=== PATIENT | female | born 1990 | race American Indian/Alaskan Native ===

== ENCOUNTER 2017-10-12 17:00 | Inpatient (IN) | payer OTHER ==
[~2017-10-12] VITALS: Ht 157.5 cm; Wt 86.6 kg
[2017-10-13] MEDS ORDERED: PRENATAL TABLE1 EAC3 PO (13:37)
== END 2017-10-16 15:56 | disposition home or self-care (01) | DRG 774 ==
LOC: OBS/DEL 17:00 → LDR 10-13 13:12 → OB/GYN 10-15 15:19
PROC: 4A1HXCZ Monitoring of Products of Conception, Cardiac Rate, External Approach (ICD-10-PCS; 2017-10-13)
PROC: 10E0XZZ Delivery of Products of Conception, External Approach (ICD-10-PCS; principal; 2017-10-14)
PROC: 3E033VJ Introduction of Other Hormone into Peripheral Vein, Percutaneous Approach (ICD-10-PCS; 2017-10-14)
DX: O24.410 Gestational diabetes mellitus in pregnancy, diet controlled (principal); O14.13 Severe pre-eclampsia, third trimester; O99.820 Streptococcus B carrier state complicating pregnancy; Z3A.37 37 weeks gestation of pregnancy; Z37.0 Single live birth